=== PATIENT | male | born 1955 | race Caucasian/White ===

== ENCOUNTER 2024-01-16 06:58 | Emergency (ER) | payer MEDICARE, OTHER ==
[2024-01-16] MEDS: Sodium Chloride 0.9% 10 ML Syringe FLUSH PRN (07:34)
[2024-01-16] MEDS: Pantoprazole 40 MG Vial IVPUSH SCH (07:36)
[2024-01-16] MEDS: Sodium Chloride 0.9% 1,000 ML IV SCH (07:36)
[2024-01-16 07:42] LABS: BASOPHILS PERCENT AUTO 0.5 % (0.3-3.8); EOSINOPHILS ABSOLUTE AUTO 0.1 x10-3/uL (0.0-0.6); EOSINOPHILS PERCENT AUTO 1.1 % (0.1-6.8); HEMATOCRIT 46.6 % (38.3-50.1); HEMOGLOBIN 15.8 g/dL (12.9-17.7); LYMPHOCYTES ABSOLUTE AUTO 1.5 x10-3/uL (0.5-4.5); LYMPHOCYTES PERCENT AUTO 15.5 % (15.8-45.3); MEAN CORPUSCULAR HEMOGLOBIN 30.2 pg (27.0-33.3); MEAN CORPUSCULAR VOLUME 88.9 fL (80.8-98.7); MEAN PLATELET VOLUME 8.6 fL (6.7-11.0); MONOCYTES ABSOLUTE AUTO 0.7 x10-3/uL (0.0-1.2); MONOCYTES PERCENT AUTO 7.5 % (5.5-15.2); NEUTROPHILS ABSOLUTE AUTO 7.2 x10-3/uL (1.7-6.9); NEUTROPHILS PERCENT AUTO 75.4 % (40.3-71.8); PLATELET COUNT,PLT 191 x10(3)uL (117-477); RED BLOOD CELL COUNT 5.24 x10(6)uL (3.90-5.90); RED CELL DISTRIBUTION WIDTH 15.3 % (12.4-15.0); WHITE BLOOD CELL COUNT,WBC 9.5 x10-3/uL (3.2-10.1)
[2024-01-16] MEDS: Albuterol/Ipratropium 3.0-0.5 MG/3 ML Neb Soln NEB ONE (07:42)
[2024-01-16 07:44] LABS: BLOOD UREA NITROGEN,BUN 16 mg/dL (7-18); CALCIUM 9.3 mg/dL (8.6-10.2); CARBON DIOXIDE,CO2 29 mmol/L (21-32); CHLORIDE,CL 104 mmol/L (100-110); CREATININE 0.8 mg/dL (0.70-1.30); EST CRCL DRUG DOSING (CG) 88.72 mL/min; ESTIMATED GFR 95 mL/min (>60); GLUCOSE RANDOM 172 mg/dL (80-116); POTASSIUM,K 3.5 mmol/L (3.5-5.3); SODIUM,NA 141 mmol/L (135-145)
[2024-01-16 07:51] LABS: ALANINE AMINOTRANSFERASE,ALT 23 U/L (12-36); ALBUMIN 3.9 g/dL (3.2-4.6); ALKALINE PHOSPHATASE 121 IU/L (56-112); ASPARTATE AMNIOTRANSFERASE,AST 16 IU/L (5-25); BILIRUBIN TOTAL 0.4 mg/dL (0.1-1.3); C-REACTIVE PROTEIN < 0.50 mg/dL (<0.50); LIPASE 9 U/L (16-77); PROTEIN TOTAL,TP 7.9 g/dL (6.0-8.0)
== END 2024-01-16 10:03 | disposition home or self-care (01) ==
LOC: FB.ED 06:58
DX: K21.00 Gastro-esophageal reflux disease with esophagitis, without bleeding (principal); I10 Essential (primary) hypertension; J44.9 Chronic obstructive pulmonary disease, unspecified; Z79.899 Other long term (current) drug therapy; Z86.39 Personal history of other endocrine, nutritional and metabolic disease
CPT/HCPCS: 80053; 83036; 83690; 85025; 85379; 86140; 93005; 94640; 96361; 96374; 99284; J2470; J3490; J7030; J7620